=== PATIENT | male | born 1990 | race Caucasian/White ===

== ENCOUNTER 2018-01-11 12:22 | Emergency (ER) | payer OTHER ==
--- NOTE | 2018-01-11 13:10 | ED.PDOC ---
History of Present Illness - General Chief Complaint: GI Problem Stated Complaint: constipation Time Seen by Provider: 01/11/18 13:06 Information Source: family Exam Limitations: other - DEVELOPMENTAL DELAY, PATIENT NOT FULLY COOPERATIVE WITH EXAM. - History of Present Illness Initial Comments: PT BROUGHT TO ED DUE TO ABDOMINAL DISCOMFORT AND CONSTIPATION FOR THE PAST FEW DAYS. PT HAS HAD SMALL BOWEL MOVEMENTS AND CONTINUES TO PASS GAS, HOWEVER ELEMENTARY ELL TEACHER STATES THAT PT APPEARS UNCOMFORTABLE AT TIMES. PT BEGAN TO VOMIT WHILE IN THE ED. MILK OF MAGNESIA HAS BEEN GIVEN AT HOME WITHOUT SIGNIFICANT RESULTS. PT HAS A HISTORY OF PERIUMBILICAL HERNIA WHICH ELEMENTARY ELL TEACHER STATES SEEMS TO BE MORE PROMINENT THAN USUAL. ROS AND HPI LIMITED DUE TO PATIENTS MENTAL CAPACITY. Abdominal Pain Onset Location: unknown Quality: intermittent Timing/Duration: intermittent Improving Factors: nothing Worsening Factors: nothing Associated Symptoms: nausea/vomiting, swelling/mass in abdomen Review of Systems - Review of Systems Constitutional: Denies: chills, fever EENTM: Denies: nose congestion, throat pain Respiratory: Denies: cough, short of breath Cardiology: Denies: edema, syncope Gastrointestinal/Abdominal: States: abdominal pain, constipation, vomiting Genitourinary: States: see HPI. Denies: hematuria Musculoskeletal: States: see HPI Skin: Denies: change in color, lesions Neurological: States: see HPI Past Medical History (General) - Patient Medical History Hx Seizures: No Hx Stroke: No Hx Dementia: No Hx Asthma: No Hx of COPD: No Hx Cardiac Disorders: No Hx Congestive Heart Failure: No Hx Pacemaker: No Hx Hypertension: No Hx Thyroid Disease: No Hx Diabetes: No Hx Gastroesophageal Reflux: No Hx Renal Disease: No Hx Cancer: No Hx of HIV: No Hx Hepatitis C: No Hx MRSA: No Surgical History: tonsillectomy, other - Vaccination History Hx Tetanus, Diphtheria Vaccination: Yes Hx Influenza Vaccination: No Hx Pneumococcal Vaccination: No - Social History Hx Tobacco Use: No Hx Chewing Tobacco Use: No Hx Alcohol Use: No Hx Substance Use: No Hx Substance Use Treatment: No Hx Depression: No Hx Physical Abuse: No Hx Emotional Abuse: No Hx Suspected Abuse: No - Female History Patient : No Family Medical History - Family History Mother Family History: No Known Physical Exam - Physical Exam General Appearance: Agitated, Alert, Obese, Well Hydrated Respiratory: lungs clear, normal breath sounds, no respiratory distress Cardiovascular/Chest: regular rate, rhythm, no edema Gastrointestinal/Abdominal: normal bowel sounds, non tender, soft, hernia - PA UMBILICAL HERNIA NOTED, NOT ABLE TO REDUCE, WHILE PATIENT SITTING UP IN CHAIR, PT REFUSES TO LIE FLAT Back Exam: normal inspection Extremity: normal inspection Neurologic: alert Skin Exam: normal color, warm/dry Progress - Progress Progress: 01/11/18 13:40 PT RESTING COMFORTABLY IN NO DISTRESS, WILL SEND HOME WITH MAGNESIUM CITRATE AND RX FOR DULCOLAX AND ZOFRAN. WILL RECOMMEND FOLLOW UP WITH PCP AND RETURN TO ED FOR WORSENING SYMPTOMS. - EKG/XRAY/CT XRAY: abdomen - NO EVIDENCE OF OBSTRUCTION, MODERATE AMT OF RETAINED FECAL MATERIAL. Departure - Departure Clinical Impression: Abdominal pain, Constipation, Vomiting Time of Disposition: 13:42 Disposition: Discharge to Home or Self Care Condition: Good Departure Forms: ED Discharge - Pt. Copy, Patient Portal Self Enrollment Instructions: DI for Abdominal Pain-Adult, DI for Constipation Diet: bland diet Referrals: Lenard Beltrán MD [Primary Care Provider] - 1-5 Days Prescriptions: Bisacodyl [Dulcolax] 10 mg PO DAILY PRN #10 tab PRN Reason: Constipation Ondansetron [Zofran Odt] 8 mg PO TID PRN #20 tab PRN Reason: Nausea/Vomiting Home Medications: Ambulatory Orders Azithromycin Susp 200Mg/5Ml [Zithromax Susp 200mg/5ml] 500 mg PO DAILY #1 bttl 11/06/14 Azithromycin [Zithromax Z-Roc] 1 ea PO DAILY #1 pack 11/06/14 Bisacodyl [Dulcolax] 10 mg PO DAILY PRN #10 tab 01/11/18 Ondansetron [Zofran Odt] 8 mg PO TID PRN #20 tab 01/11/18
--- NOTE | 2018-01-11 13:34 | RAD ---
EXAM DESCRIPTION: Abdomen Flat Upright CLINICAL HISTORY: 27 years Male, ABDOMINAL PAIN/CONSTIPATION COMPARISON: None. TECHNIQUE: Supine and upright x-ray views of the abdomen and pelvis FINDINGS: No free air under the diaphragm. Air-fluid level in the stomach is seen. No other air-fluid levels. Dense midabdomen is noted, exact cause uncertain, possibly body habitus. The configuration does not strongly suggest large volume ascites or a mass in the abdomen. No definite visceromegaly. No small bowel dilatation to suggest obstruction. Moderate amount of fecal material is present in the colon. Rectal region appears clear however. IMPRESSION: No diagnostic abnormality. Electronically signed by: Car Gamez MD 01/11/2018 1:32 PM CDT
[2018-01-11] MEDS ORDERED: MAGNESIUM CITRATE 300 ML BTTL PO ONE (13:45)
== END 2018-01-11 13:55 | disposition home or self-care (01) ==
LOC: ER 12:22
DX: K59.00 Constipation, unspecified (principal); R11.10 Vomiting, unspecified; R10.9 Unspecified abdominal pain; K42.9 Umbilical hernia without obstruction or gangrene; F79 Unspecified intellectual disabilities

== ENCOUNTER 2018-08-25 19:10 | Emergency (ER) | payer OTHER ==
[2018-08-25 19:25] VITALS: BP 117/85; TEMP 98.6; O2SAT 94
[2018-08-25] MEDS ORDERED: AZITHROMYCIN 200 MG/5 ML 15ml BOTTLE PO ONE (19:27)
--- NOTE | 2018-08-25 19:32 | ED.PDOC ---
History of Present Illness - General Chief Complaint: Respiratory Problem Stated Complaint: cough Time Seen by Provider: 08/25/18 19:27 Source: family Exam Limitations: physical impairment - History of Present Illness Comments: patient comes in with 2 week history of worsening cough. Mom states that he does have Down syndrome and is primarily nonverbal. He has seasonal allergies regularly if they normally don't worry about it but it seems to be worsening. Today he's had now productive cough and seems to be gagging because of the drainage. He's had no fever, chills, wheezing, or shortness of breath. He's been eating fine and has had some clear rhinorrhea. He otherwise has no other medical problems beyond the Down syndrome. Timing/Duration: getting worse Cough Quality/Degree: productive cough Possible Cause: no prior episodes Improving Factors: nothing Worsening Factors: nothing Associated Symptoms: nasal congestion, nasal drainage Allergies/Adverse Reactions: Allergies NO KNOWN ALLERGY Allergy (Unverified 11/29/12 02:51) Home Medications: Ambulatory Orders Azithromycin Susp 200Mg/5Ml [Zithromax Susp 200mg/5ml] 500 mg PO DAILY #1 bttl 11/06/14 Azithromycin [Zithromax Z-Roc] 1 ea PO DAILY #1 pack 11/06/14 Bisacodyl [Dulcolax] 10 mg PO DAILY PRN #10 tab 01/11/18 Ondansetron [Zofran Odt] 8 mg PO TID PRN #20 tab 01/11/18 Azithromycin Susp 200Mg/5Ml [Zithromax Susp 200mg/5ml] 6 ml PO DAILY 4 Days #30 ml 08/25/18 Review of Systems - Review of Systems Constitutional: States: no symptoms reported. Denies: chills, fever EENTM: States: no symptoms reported Respiratory: States: cough. Denies: short of breath, wheezing Gastrointestinal/Abdominal: States: no symptoms reported. Denies: abdominal pain, nausea, vomiting Past Medical History (General) - Patient Medical History Hx Seizures: No Hx Stroke: No Hx Dementia: No Hx Asthma: No Hx of COPD: No Hx Cardiac Disorders: No Hx Congestive Heart Failure: No Hx Pacemaker: No Hx Hypertension: No Hx Thyroid Disease: No Hx Diabetes: No Hx Gastroesophageal Reflux: No Hx Renal Disease: No Hx Cancer: No Hx of HIV: No Hx Hepatitis C: No Hx MRSA: No - Vaccination History Hx Tetanus, Diphtheria Vaccination: Yes Hx Influenza Vaccination: No Hx Pneumococcal Vaccination: No - Social History Hx Tobacco Use: No Hx Chewing Tobacco Use: No Hx Alcohol Use: No Hx Substance Use: No Hx Substance Use Treatment: No Hx Depression: No Hx Physical Abuse: No Hx Emotional Abuse: No Hx Suspected Abuse: No - Female History Patient : No Family Medical History - Family History Mother Family History: No Known Physical Exam - Physical Exam General Appearance: Alert, No apparent distress Eye Exam: bilateral normal ENT Exam: normal ENT inspection, hearing grossly normal, TMs normal, pharynx normal, nasal congestion, nasal drainage Neck: non-tender, full range of motion, supple, normal inspection Respiratory: chest non-tender, lungs clear, normal breath sounds, no respiratory distress Cardiovascular/Chest: normal peripheral pulses, regular rate, rhythm, no edema, no gallop, no murmur Gastrointestinal/Abdominal: normal bowel sounds, soft Neurologic: alert Progress - Progress Progress: 08/25/18 19:32 URI secondary to duration of symptoms with worsening will treat with zithromax 500 mg day one then 250 mg day 2-5 Departure - Departure Clinical Impression: Upper respiratory infection Qualifiers: URI type: unspecified viral URI Qualified Code(s): J06.9 - Acute upper respiratory infection, unspecified Disposition: Discharge to Home or Self Care Condition: Good Departure Forms: ED Discharge - Pt. Copy, Patient Portal Self Enrollment Diet: resume usual diet Referrals: Lenard Beltrán MD [Primary Care Provider] - 1-2 Weeks Prescriptions: Azithromycin Susp 200Mg/5Ml [Zithromax Susp 200mg/5ml] 6 ml PO DAILY 4 Days #30 ml Home Medications: Ambulatory Orders Azithromycin Susp 200Mg/5Ml [Zithromax Susp 200mg/5ml] 500 mg PO DAILY #1 bttl 11/06/14 Azithromycin [Zithromax Z-Roc] 1 ea PO DAILY #1 pack 11/06/14 Bisacodyl [Dulcolax] 10 mg PO DAILY PRN #10 tab 01/11/18 Ondansetron [Zofran Odt] 8 mg PO TID PRN #20 tab 01/11/18 Azithromycin Susp 200Mg/5Ml [Zithromax Susp 200mg/5ml] 6 ml PO DAILY 4 Days #30 ml 08/25/18 Additional Instructions: Return to ER for shortness of breath, increased work of breathing. Follow up with PCP in 3-4 days to recheck.
[2018-08-25] MEDS ORDERED: KETOROLAC TROMETHAMINE INJ 60 MG/2 ML VIAL IM ONE (19:48)
== END 2018-08-25 19:45 | disposition home or self-care (01) ==
LOC: ER 19:10
DX: J06.9 Acute upper respiratory infection, unspecified (principal)

== ENCOUNTER 2018-09-21 17:58 | Emergency (ER) | payer OTHER ==
[2018-09-21 18:25] VITALS: BP 158/79; TEMP 98.7; O2SAT 97
--- NOTE | 2018-09-21 18:42 | ED.PDOC ---
History of Present Illness - General Chief Complaint: Respiratory Problem Stated Complaint: cough,shortness of breath Time Seen by Provider: 09/21/18 18:23 Source: family Exam Limitations: other - SEVERE DOWN'S SYNDROME - History of Present Illness Comments: PT HAS HAD PERSISTENT COUGH. 3 EPISODES PAST 3 MONTHS TREATED WITH ABX. IS CURRENTLY ON AUGMENTIN AND STEROIDS AND NOT DOING BETTER. Timing/Duration: week Cough Quality/Degree: moderate, dry cough Improving Factors: nothing Worsening Factors: nothing Associated Symptoms: shortness of breath Allergies/Adverse Reactions: Allergies NO KNOWN ALLERGY Allergy (Unverified 11/29/12 02:51) Home Medications: Ambulatory Orders Bisacodyl [Dulcolax] 10 mg PO DAILY PRN #10 tab 01/11/18 Ondansetron [Zofran Odt] 8 mg PO TID PRN #20 tab 01/11/18 predniSONE 20 mg PO DAILY 09/21/18 Review of Systems - Review of Systems Constitutional: Denies: chills, fever EENTM: States: no symptoms reported Respiratory: States: cough, short of breath - WOOTEN Cardiology: Denies: edema Gastrointestinal/Abdominal: Denies: nausea, vomiting Unable to Obtain Due To: other - DEMENTIA Past Medical History (General) - Patient Medical History Hx Seizures: No Hx Stroke: No Hx Dementia: No Hx Asthma: No Hx of COPD: No Hx Cardiac Disorders: No Hx Congestive Heart Failure: No Hx Pacemaker: No Hx Hypertension: No Hx Thyroid Disease: No Hx Diabetes: No Hx Gastroesophageal Reflux: No Hx Renal Disease: No Hx Cancer: No Hx of HIV: No Hx Hepatitis C: No Hx MRSA: No MRSA Source:: Wound Surgical History: tonsillectomy - Vaccination History Hx Tetanus, Diphtheria Vaccination: Yes Hx Influenza Vaccination: No Hx Pneumococcal Vaccination: No - Social History Hx Tobacco Use: No Hx Chewing Tobacco Use: No Hx Alcohol Use: No Hx Substance Use: No Hx Substance Use Treatment: No Hx Depression: No Hx Physical Abuse: No Hx Emotional Abuse: No Hx Suspected Abuse: No - Female History Patient : No Family Medical History - Family History Mother Family History: No Known Physical Exam - Physical Exam General Appearance: Alert, Obese Eye Exam: bilateral normal ENT Exam: normal ENT inspection, TMs normal, other - WILL NOT ALLOW OP EXAM Neck: non-tender, full range of motion, supple Respiratory: lungs clear, normal breath sounds, no respiratory distress Cardiovascular/Chest: regular rate, rhythm, no murmur Gastrointestinal/Abdominal: non tender, soft Extremity: normal range of motion, no pedal edema Neurologic: alert Skin Exam: normal color, warm/dry Lymphatic: no adenopathy Progress - Progress Progress: 09/21/18 19:42 MULTIPLE ATTEMPTS TO DO EKG ON PT HAVE FAILED. VERY LARGE INDIVIDUAL AND FEEL THE RISK TO STAFF AND PATIENT AT THIS TIME OUTWEIGHS BENEFIT AT THIS TIME. MOM AGREES. - EKG/XRAY/CT XRAY: chest - ATELECTASIS VS EARLY LLL INFILTRATE. Departure - Departure Clinical Impression: Down syndrome Pneumonia Qualifiers: Pneumonia type: due to unspecified organism Laterality: left Lung location: lower lobe of lung Qualified Code(s): J18.1 - Lobar pneumonia, unspecified organism ICD-10 Supporting Text: DDX ATELECTASIS Time of Disposition: 19:45 Disposition: Discharge to Home or Self Care Condition: Good Departure Forms: ED Discharge - Pt. Copy, Patient Portal Self Enrollment Instructions: Pneumonia in Adults Referrals: Lenard Beltrán MD [Primary Care Provider] - 09/24/18 Home Medications: Ambulatory Orders Bisacodyl [Dulcolax] 10 mg PO DAILY PRN #10 tab 01/11/18 Ondansetron [Zofran Odt] 8 mg PO TID PRN #20 tab 01/11/18 predniSONE 20 mg PO DAILY 09/21/18
--- NOTE | 2018-09-21 19:06 | RAD ---
EXAM DESCRIPTION: Chest,2 Views CLINICAL HISTORY: 28 years Male COUGH COMPARISON: 11/06/2014 FINDINGS: Heart size and mediastinal contour are stable. There is some increased density in the lower lung levin which may reflect areas of developing infiltrate or atelectasis. No pleural fluid or pneumothorax. IMPRESSION: Question small amount of developing atelectasis or infiltrate in the lung bases. Electronically signed by: Rosita Trujillo MD 09/21/2018 7:05 PM HOT BRAIDER
== END 2018-09-21 19:58 | disposition home or self-care (01) ==
LOC: ER 17:58
DX: J18.9 Pneumonia, unspecified organism (principal); Q90.9 Down syndrome, unspecified

== ENCOUNTER → 2018-10-03 | Outpatient (CLI) | payer OTHER ==
--- NOTE | 2018-10-03 16:48 | RAD ---
EXAM DESCRIPTION: Chest,2 Views CLINICAL HISTORY: J18.9 COMPARISON: Previous study September 21, 2018 TECHNIQUE: PA/lateral FINDINGS: There is no acute appearing cardiac or pulmonary abnormality. Heart size is prominent with normal pulmonary vascularity. No pleural effusion or pneumothorax. Mild volume loss of the lung bases as on previous study. Lungs are otherwise clear with no consolidating infiltrate. Lateral view shows intact sternum and T-spine. IMPRESSION: No acute process is identified in the chest. Electronically signed by: Cra Gamez MD 10/03/2018 4:46 PM DATABASE SECURITY ADMINISTRATOR
== END ==
LOC: RAD 15:41
PROVIDERS: ATTEND Family Medicine
DX: J18.9 Pneumonia, unspecified organism (principal)

== ENCOUNTER 2018-11-25 20:40 | Emergency (ER) | payer OTHER ==
--- NOTE | 2018-11-25 23:09 | ED.PDOC ---
History of Present Illness - General Chief Complaint: Skin/Abrasion/Tear Stated Complaint: lip swelling Time Seen by Provider: 11/25/18 23:01 Source: family Exam Limitations: physical impairment - Down syndrome-non verbal - History of Present Illness Initial Comments: Madhav Espinal 28 y/o male brought by mom after he bump a wall last night noted swelling on his upper lip.No LOC. Timing/Duration: 24 hours Severity: moderate Improving Factors: nothing Worsening Factors: eating Associated Symptoms: denies symptoms Allergies/Adverse Reactions: Allergies NO KNOWN ALLERGY Allergy (Unverified 11/29/12 02:51) Home Medications: Ambulatory Orders Bisacodyl [Dulcolax] 10 mg PO DAILY PRN #10 tab 01/11/18 Ondansetron [Zofran Odt] 8 mg PO TID PRN #20 tab 01/11/18 predniSONE 20 mg PO DAILY 09/21/18 Amoxicillin Suspension [Amoxil Suspension] 10 ml PO TID 10 Days #300 ml 11/25/18 Review of Systems - Review of Systems EENTM: States: other - lip swelling Unable to Obtain Due To: condition - Down syndrome no verbal Past Medical History (General) - Patient Medical History Hx Seizures: No Hx Stroke: No Hx Dementia: No Hx Asthma: No Hx of COPD: No Hx Cardiac Disorders: No Hx Congestive Heart Failure: No Hx Pacemaker: No Hx Hypertension: No Hx Thyroid Disease: No Hx Diabetes: No Hx Gastroesophageal Reflux: No Hx Renal Disease: No Hx Cancer: No Hx of HIV: No Hx Hepatitis C: No Hx MRSA: No MRSA Source:: Wound Surgical History: no surgical history - Vaccination History Hx Tetanus, Diphtheria Vaccination: Yes Hx Influenza Vaccination: No Hx Pneumococcal Vaccination: No - Social History Hx Tobacco Use: No Hx Chewing Tobacco Use: No Hx Alcohol Use: No Hx Substance Use: No Hx Substance Use Treatment: No Hx Depression: No Hx Physical Abuse: No Hx Emotional Abuse: No Hx Suspected Abuse: No - Female History Patient : No Family Medical History - Family History Mother Family History: No Known Physical Exam - Physical Exam General Appearance: Alert, No apparent distress Eye Exam: bilateral normal Ears, Nose, Throat: hearing grossly normal, normal ENT inspection, normal pharynx, other - no dental injury but with intraoral mucosal laceration;no tongue laceration Departure - Departure Clinical Impression: Contusion of lip, initial encounter Laceration of intraoral surface of lip Qualifiers: Encounter type: initial encounter Qualified Code(s): S01.511A - Laceration without foreign body of lip, initial encounter Time of Disposition: 23:19 Disposition: Discharge to Home or Self Care Condition: Fair Departure Forms: ED Discharge - Pt. Copy, Patient Portal Self Enrollment Diet: other - no spicy,hot foods;may have ice cream milk shake Referrals: Lenard Beltrán MD [Primary Care Provider] - 1-2 Weeks Prescriptions: Amoxicillin Suspension [Amoxil Suspension] 10 ml PO TID 10 Days #300 ml Home Medications: Ambulatory Orders Bisacodyl [Dulcolax] 10 mg PO DAILY PRN #10 tab 01/11/18 Ondansetron [Zofran Odt] 8 mg PO TID PRN #20 tab 01/11/18 predniSONE 20 mg PO DAILY 09/21/18 Amoxicillin Suspension [Amoxil Suspension] 10 ml PO TID 10 Days #300 ml 11/25/18 Additional Instructions: may take Motrin Liquid 3 teaspoons 3 x a day for pain as needed;Use Sensodyne toothpaste or childres tooth paste for brushing teeth until better
[2018-11-25] MEDS ORDERED: AMOXICILLIN 250MG/5ML 80 ML BTTL PO ONE (23:13)
[2018-11-25 23:28] VITALS: BP 177/79; TEMP 99.3; O2SAT 98
== END 2018-11-25 23:40 | disposition home or self-care (01) ==
LOC: ER 20:40
DX: S01.511A Laceration without foreign body of lip, initial encounter (principal); Q90.9 Down syndrome, unspecified; W22.09XA Striking against other stationary object, initial encounter; Y92.9 Unspecified place or not applicable

== ENCOUNTER 2019-08-27 19:46 | Emergency (ER) | payer OTHER ==
[2019-08-27 20:06] VITALS: TEMP 97.5
--- NOTE | 2019-08-27 20:45 | RAD ---
EXAM DESCRIPTION: Chest,2 Views CLINICAL HISTORY: 28 years Male, cough with sob. COMPARISON: October 03, 2018. FINDINGS: Cardiomediastinal silhouette is normal. No focal consolidation, pneumothorax or pleural effusion. Scoliosis. IMPRESSION: No acute findings. Electronically signed by: Poli Pappas MD 08/27/2019 8:44 PM GUITAR REPAIRER
--- NOTE | 2019-08-27 20:48 | ED.PDOC ---
History of Present Illness - General Chief Complaint: Respiratory Problem Stated Complaint: cough Time Seen by Provider: 08/27/19 20:08 Source: patient, RN notes reviewed, Vital Signs reviewed, family - mother Exam Limitations: other - history and review of systems are limited secondary to patient's mental retardation. All history and review of systems is obtained through the mother. - History of Present Illness Comments: patient is a 28-year-old white male who presents with complaints of cough and shortness of breath. Patient has trisomy 21 with mental retardation. Per the mother the patient has had a cough for the last couple of weeks but is worsened in the last 2 days with increasing shortness of breath. Denies any fever or chills.. Mother denies any type of nausea, vomiting or diarrhea. She also denies chest pain. Nothing seems to make the cough better or worse. Timing/Duration: week, getting worse Cough Quality/Degree: mild, dry cough Possible Cause: occasional episodes Improving Factors: nothing Worsening Factors: nothing Associated Symptoms: cough, nasal congestion Allergies/Adverse Reactions: Allergies NO KNOWN ALLERGY Allergy (Unverified 11/29/12 02:51) Home Medications: Ambulatory Orders Albuterol Sulfate Nebs [Proventil Nebs] 08/27/19 Guaifenesin-Codeine [Guaifenesin AC] 10 ml PO Q6H PRN #120 ml 08/27/19 prednisoLONE 15 MG/5 ML [Orapred] 20 ml PO DAILY 5 Days #100 ml 08/27/19 Review of Systems - Review of Systems Constitutional: States: see HPI, malaise. Denies: fever EENTM: States: no symptoms reported Respiratory: States: see HPI, cough, short of breath. Denies: wheezing Cardiology: States: no symptoms reported Gastrointestinal/Abdominal: States: no symptoms reported Genitourinary: States: no symptoms reported Musculoskeletal: States: no symptoms reported Skin: States: no symptoms reported Neurological: States: no symptoms reported Endocrine: States: no symptoms reported Hematologic/Lymphatic: States: no symptoms reported Unable to Obtain Due To: other - patient with mental retardation. All other Systems: Reviewed and Negative Past Medical History (General) - Patient Medical History Hx Seizures: No Hx Stroke: No Hx Dementia: No Hx Asthma: No Hx of COPD: No Hx Cardiac Disorders: No Hx Congestive Heart Failure: No Hx Pacemaker: No Hx Hypertension: No Hx Thyroid Disease: No Hx Diabetes: No Hx Gastroesophageal Reflux: No Hx Renal Disease: No Hx Cancer: No Hx of HIV: No Hx Hepatitis C: No Hx MRSA: No Hx Other PMH: Yes - trisomy 21 MRSA Source:: Wound - Vaccination History Hx Tetanus, Diphtheria Vaccination: Yes Hx Influenza Vaccination: No Hx Pneumococcal Vaccination: No - Social History Hx Tobacco Use: No Hx Chewing Tobacco Use: No Hx Alcohol Use: No Hx Substance Use: No Hx Substance Use Treatment: No Hx Depression: No Hx Physical Abuse: No Hx Emotional Abuse: No Hx Suspected Abuse: No - Female History Patient : No - Triage Comment ED Triage Comment: Down's syndrome pt w/cough. Parent worried about developing pneumonia Family Medical History - Family History Mother Family History: No Known Physical Exam - Physical Exam General Appearance: Alert, Anxious, Obese, Well Developed, Well Hydrated, Well Nourished Eye Exam: bilateral normal ENT Exam: normal ENT inspection, hearing grossly normal, pharynx normal Neck: non-tender, full range of motion, supple, normal inspection, trachea midline Respiratory: chest non-tender, respiratory distress - mild, rhonchi - diffusely Cardiovascular/Chest: normal peripheral pulses, regular rate, rhythm, no edema, no gallop, no murmur Gastrointestinal/Abdominal: normal bowel sounds, non tender, soft Extremity: normal range of motion, non-tender, normal inspection Neurologic: organizational development consultant II-XII nml as tested, no motor/sensory deficits, alert Skin Exam: normal color, warm/dry Lymphatic: no adenopathy Progress - Progress Progress: 08/27/19 20:52 patient is resting quietly here without significant cough or shortness of breath. His oxygen saturations are appropriate. Plan discharge home with cough medicine and steroids. I discussed the plan of care with the mother and she voices understanding and agreement. Follow up in the next 3-5 days. Truong Tijerina M.D. #[id number] - Results/Orders Results/Orders: differential diagnosis: Viral URI, pneumonia, bronchitis, flu among others. Chest,2 Views CLINICAL HISTORY: 28 years Male, cough with sob. COMPARISON: October 03, 2018. FINDINGS: Cardiomediastinal silhouette is normal. No focal consolidation, pneumothorax or pleural effusion. Scoliosis. IMPRESSION: No acute findings. Electronically signed by: Poli Pappas MD 08/27/2019 8:44 PM Departure - Departure Clinical Impression: Viral upper respiratory tract infection with cough Time of Disposition: 20:53 Disposition: Discharge to Home or Self Care Condition: Good Departure Forms: ED Discharge - Pt. Copy, Patient Portal Self Enrollment Instructions: Viral Upper Respiratory Infection, Adult (DC) Referrals: Lenard Beltrán MD [Primary Care Provider] - 1-2 Weeks Prescriptions: Guaifenesin-Codeine [Guaifenesin AC] 10 ml PO Q6H PRN #120 ml PRN Reason: Cough prednisoLONE 15 MG/5 ML [Orapred] 20 ml PO DAILY 5 Days #100 ml Home Medications: Ambulatory Orders Albuterol Sulfate Nebs [Proventil Nebs] 08/27/19 Guaifenesin-Codeine [Guaifenesin AC] 10 ml PO Q6H PRN #120 ml 08/27/19 prednisoLONE 15 MG/5 ML [Orapred] 20 ml PO DAILY 5 Days #100 ml 08/27/19
[2019-08-27 21:07] VITALS: BP 136/89; O2SAT 95
== END 2019-08-27 21:05 | disposition home or self-care (01) ==
LOC: ER 19:46
DX: J06.9 Acute upper respiratory infection, unspecified (principal); Q90.9 Down syndrome, unspecified